=== PATIENT | female | born 1945 | race Caucasian/White ===

== ENCOUNTER 2018-02-20 01:45 | Emergency (ER) | payer MEDICARE ==
[2018-02-20] MEDS ORDERED: PROPARACAINE 0.5% OPHTH DROPS 15 ML BTL BOTH EYES STA (02:50)
[2018-02-20] MEDS ORDERED: TOBRAMYCIN 0.3% OPHTH DROPS 5 ML BTL BOTH EYES STA (03:08)
--- NOTE | 2018-02-20 03:09 | ED ---
General Adult HPI - General Chief complaint: ENT Stated complaint: Pain in eyes Time Seen by Provider: 02/20/18 02:28 Source: patient Mode of arrival: ambulatory Limitations: no limitations - History of Present Illness Initial comments: 73-year-old female patient presents to emergency department today for evaluation of foreign body sensation to her bilateral eyes. Patient states she was outside earlier today when she felt dust go into her eyes. Patient states that she rubbed them immediately. She states that she did try flushing with cool water but is still feels like something is present. She denies any blurred or double vision with this. Denies any eye pain just feels a scratching sensation bilaterally. She denies any drainage from the eyes. Patient denies any recent rash, fever, chills, shortness breath, chest pain, abdominal pain, nausea, vomiting, diarrhea, constipation, back pain, numbness, tingling, dizziness, weakness, hematuria, dysuria, urinary urgency, urinary frequency, headache, or any other complaints. - Related Data Allergies Allergy/AdvReac Type Severity Reaction Status Date / Time No Known Allergies Allergy Verified 02/20/18 01:51 Review of Systems ROS Statement: Those systems with pertinent positive or pertinent negative responses have been documented in the HPI. ROS Other: All systems not noted in ROS Statement are negative. Past Medical History Past Medical History: Diabetes Mellitus, Hypertension Additional Past Medical History / Comment(s): IBS. mitral valve prolapse History of Any Multi-Drug Resistant Organisms: None Reported Past Surgical History: Appendectomy, Section, Cholecystectomy, Tonsillectomy Additional Past Surgical History / Comment(s): left eye surgery. Past Psychological History: No Psychological Hx Reported Smoking Status: Never smoker Past Alcohol Use History: None Reported Past Drug Use History: None Reported General Exam Limitations: no limitations General appearance: alert, in no apparent distress, other (This is a well- developed, well-nourished elderly female patient in no acute distress. Vital signs upon presentation are temperature 97.6F, pulse 63, respirations 16, blood pressure 153/74, pulse ox 96% on room air.) Eye exam: Present: normal appearance, PERRL, EOMI, other (Patient has no conjunctival injection. No drainage from the eyes. Did perform Wood's lamp examination with fluorescein stain, did show conjunctival abrasion on the left thigh approximately 3:00. There is no abnormality is evident in the right eye. I did invert the bilateral eyelids and showed no evidence of foreign body. ). Absent: scleral icterus, conjunctival injection, periorbital swelling ENT exam: Present: normal exam, normal oropharynx, mucous membranes moist Respiratory exam: Present: normal lung sounds bilaterally. Absent: respiratory distress, wheezes, rales, rhonchi, stridor Cardiovascular Exam: Present: regular rate, normal rhythm, normal heart sounds. Absent: systolic murmur, diastolic murmur, rubs, gallop, clicks Neurological exam: Present: alert, oriented X3, CN II-XII intact Psychiatric exam: Present: normal affect, normal mood Skin exam: Present: warm, dry, intact, normal color. Absent: rash Course Vital Signs 02/20/18 02/20/18 01:46 03:27 Temperature 97.6 F 98 F Pulse Rate 63 77 Respiratory 16 18 Rate Blood Pressure 153/74 155/77 O2 Sat by Pulse 96 97 Oximetry Medical Decision Making - Medical Decision Making 73-year-old female patient presented to the emergency department today for evaluation of bilateral forearm body sensation to her eyes. Little examination showed conjunctival abrasion on the left. Patient will be given tobramycin drops to use 4 times daily while awake. She is instructed to follow-up with ophthalmology for reevaluation if her symptoms aren't improving over the next 1- 2 days. She is requesting Dr. Ardon for follow-up. Return parameters discussed in detail. She verbalizes understanding and agrees with this plan. Disposition Clinical Impression: Conjunctival abrasion Disposition: HOME SELF-CARE Condition: Good Instructions: Corneal Abrasion (ED), Eye Foreign Body (ED) Additional Instructions: Use drops 1 drop to each eye 4 times daily while awake. Follow-up with ophthalmology on Thursday for symptoms aren't improved. Return here immediately for any new, worsening, or concerning symptoms. Is patient prescribed a controlled substance at d/c from ED?: No Referrals: Jordan Marin MD [Primary Care Provider] - 1-2 days Dean Ardon MD [STAFF PHYSICIAN] - 1-2 days Time of Disposition: 03:09
[2018-02-20 03:32] VITALS: BP 155/77; PULSE 77; RESP 18; TEMP 98
== END 2018-02-20 03:32 | disposition home or self-care (01) ==
LOC: EC 01:45
DX: S05.02XA Injury of conjunctiva and corneal abrasion without foreign body, left eye, initial encounter (principal)
CPT/HCPCS: 99283